=== PATIENT | female | born 2000 | race Two or more races ===

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

== ENCOUNTER 2022-01-21 20:07 | Emergency (ER) | payer BC, SELFPAY ==
[2022-01-21 20:08] VITALS: BP 131/80; PULSE 94; RESP 14; TEMP 36.5; O2SAT 99; BMI 35.9
--- NOTE | 2022-01-21 20:23 | RAD_ITS ---
STUDY: X-RAY - RIGHT HAND REASON FOR EXAM: Female, 21 years old. injury TECHNIQUE: 3 view(s) of the hand. COMPARISON: None. FINDINGS: Normal radiocarpal articulation. Normal distal radioulnar joint. Normal visualized carpal bones. Normal carpal articulations Normal carpometacarpal articulation of the thumb. Normal second through fifth carpometacarpal joints. Acute slightly volarly angulated transverse fracture the midshaft of the fifth metacarpal bone. Normal metacarpophalangeal joint of the thumb. Normal interphalangeal joint of the thumb. Normal proximal and distal phalanges of the thumb. Normal metacarpophalangeal joints of the second through fifth fingers. Normal proximal and distal interphalangeal joints of the second through fifth fingers. Normal phalanges of the second through fifth fingers. The soft tissue structures are unremarkable. RAD/Hand Min 3 Views IMPRESSION: Acute slightly volarly angulated transverse fracture the midshaft of the fifth metacarpal bone. Electronically Signed: Jad Ventura MD at 20:44 EDT ,
--- NOTE | 2022-01-21 20:34 | EDS_ITS ---
HPI History of Present Illness Chief Complaint: Upper Extremity Injury Informant: patient Onset/Context/Timing Onset: Today Narrative Narrative: Patient presents with right hand injury. She states she does not want to go into detail what happened but the start story is that she punched something and has pain to her right hand. She is right-hand dominant. [facility] Medical History Scoliosis Home Medications hydrocodone-acetaminophen 5-325mg 5mg-325mg 1 tab PO Q6H PRN pain 3 days #10 tabs 01/21/22 [Rx Last Taken Unknown] Allergy/AdvReac Type Severity Reaction Status Date / Time No Known Allergies Allergy Verified 01/21/22 20:08 Surgical History History of surgery on wrist Social History Smoking Status: Never smoker ROS ROS ED Constitutional Constitutional ED: Denies chills or fever(s) Eyes Eyes: Denies change in vision or discharge from eye(s) ENT ENT ED: Denies discharge from eye(s), rhinorrhea or sore throat Cardiovascular Cardiovascular: Denies chest pain or palpitations Respiratory/Chest Respiratory/Chest: Denies cough or dyspnea Gastrointestinal Gastrointestinal: Denies abdominal pain, nausea or vomiting Genitourinary Genitourinary ED: Denies dysuria Musculoskeletal Musculoskeletal: Reports extremity pain; Denies back pain Integumentary Denies Abrasions or rash Neurologic Neurologic: Denies headache(s) or weakness Psychiatric Psychiatric: Denies anxiety or depression Allergic/Immunologic Allergic/Immunologic ED: Denies lip swelling or urticaria EXAM Physical Exam Const Vital Signs: 01/21/22 20:08 Temperature 97.7 F L Temperature Source Temporal Pulse Rate 94 Respiratory Rate 14 Blood Pressure 131/80 H Blood Pressure Mean 97 Pulse Ox 99 Oxygen Delivery Method Room Air Positive well nourished and well developed General Appearance ED: well developed HEENT Reports normocephalic and head/scalp atraumatic Eyes PERRL and EOMs intact bilaterally Neck supple Chest Wall inspection of chest normal and palpation of chest normal Resp normal respiratory effort and clear to auscultation bilaterally Cardio regular rate and regular rhythm GI normal to inspection, nondistended, normoactive bowel sounds Palpation: soft Extremity Extremity Narrative: Tenderness palpation with mild edema along the right fourth and fifth metacarpals. Deformity is palpated along the fifth metacarpal. Good range of motion of all digits. Normal cap refill and sensation. No tenderness at the wrist itself. Neuro oriented x3 and no sensory deficits noted Sensorium / Orientation: alert Motor Exam: strength 5/5 throughout Psych mental status grossly normal Skin no rashes or lesions noted MDM MDM MDM Narrative Medical decision making narrative: Patient initially declined anything for pain. Right hand x-rays obtained. Radiography Diagnostic Testing: Radiology Impression Hand X-Ray 01/21/22 20:23 IMPRESSION: Acute slightly volarly angulated transverse fracture the midshaft of the fifth metacarpal bone. Electronically Signed: Jad Ventura MD at 20:44 EDT , Treatment and Re-Evaluation Narrative: Right hand x-ray per my interpretation reveals a midshaft right fifth metacarpal fracture. Radiology interpretation is reviewed. X-rays reviewed with patient. Hand is placed under ulnar gutter splint by myself. Following splint application she has good cap refill distally. Prescription for [place] will be sent to [facility] and she will receive 1 dose here. She request follow-up with [facility]. Procedures Upper Extremity Splints Upper Extremity Splint: Orthoglass and Ulnar gutter Splint Fabrication: Fabricated Location: Right Discharge Plan Triage Chief Complaint: Upper Extremity Injury ED Provider: Edelmira Dennis Dx/Rx/DC Orders Clinical Impression: Closed hand fracture Instructions: ED Closed Hand Fracture (Adult) Prescriptions: New hydrocodone-acetaminophen 5-325 mg tablet 1 tab PO Q6H PRN (Reason: pain) 3 Days Qty: 10 0RF Primary Care Provider: Care Physician,No Primary Referrals: Trev Canchola DO [Med Staff - Active Staff] - 5-7 Days Care Physician,No Primary [Primary Care Provider] - Disposition Disposition: Home, Self Care Discharge Date/Time: 01/21/22 20:51
[2022-01-21] MEDS: Diphth,Pertuss(Acell),Tet Vac 0.5 ML Vial IM (20:49)
[2022-01-21 20:50] VITALS: BP 124/78; PULSE 78; RESP 16; O2SAT 99
[2022-01-21] MEDS: HYDROcodone Bitartrate/Apap 5/325 Tablet PO (21:17)
== END 2022-01-21 21:18 | disposition home or self-care (01) ==
PROVIDERS: Emergency Provider Emergency Medicine; Visit Provider Emergency Medicine
DX: S62.329A Displaced fracture of shaft of unspecified metacarpal bone, initial encounter for closed fracture (principal); W22.09XA Striking against other stationary object, initial encounter; Z23 Encounter for immunization
CPT/HCPCS: 29125; 73130; 90471; 90715; 99282

== ENCOUNTER 2023-03-10 19:40 | Emergency (ER) | payer BC, SELFPAY ==
[2023-03-10 19:42] VITALS: BP 139/97; PULSE 100; RESP 18; TEMP 36.6; O2SAT 96; BMI 29.5
--- NOTE | 2023-03-10 19:45 | RAD_ITS ---
STUDY: X-RAY - LEFT HAND REASON FOR EXAM: Female, 22 years old. INJURY TECHNIQUE: 3 view(s) of the hand. COMPARISON: None. FINDINGS: Normal radiocarpal articulation. Normal distal radioulnar joint. Normal visualized carpal bones. Normal carpal articulations Normal carpometacarpal articulation of the thumb. Normal second through fifth carpometacarpal joints. Normal metacarpi. Normal metacarpophalangeal joint of the thumb. Normal interphalangeal joint of the thumb. Normal proximal and distal phalanges of the thumb. Normal metacarpophalangeal joints of the second through fifth fingers. Normal proximal and distal interphalangeal joints of the second through fifth fingers. Normal phalanges of the second through fifth fingers. The soft tissue structures are unremarkable. RAD/Hand Min 3 Views IMPRESSION: Unremarkable x-ray examination of the hand. Electronically Signed: Silva Stallings MD at 20:44 EDT ,
[2023-03-10] MEDS: Ibuprofen 200 MG Tablet 400 MG PO (20:07)
--- NOTE | 2023-03-10 20:14 | EX.ED.UPPERE ---
HPI History of Present Illness Chief Complaint: Upper Extremity Injury Informant: patient Narrative Narrative: Patient presents with left hand injury. She states she hit her left hand against a table. She has superficial abrasion with bruising along the ulnar side of her hand. She is right-hand dominant. [facility] Medical History Fracture of fifth metacarpal bone of right hand Scoliosis Home Medications NK 03/06/22 [History Last Taken Unknown] Allergy/AdvReac Type Severity Reaction Status Date / Time No Known Allergies Allergy Verified 03/10/23 19:45 Surgical History History of surgery on wrist Social History household members: family Smoking Status: Current every day smoker tobacco type: cigarettes and smokeless tobacco ROS ROS ED Constitutional Constitutional ED: Denies chills or fever(s) ENT ENT ED: Denies sore throat Cardiovascular Cardiovascular: Denies chest pain Respiratory/Chest Respiratory/Chest: Denies cough or dyspnea Gastrointestinal Gastrointestinal: Denies abdominal pain, nausea or vomiting Musculoskeletal Musculoskeletal: Reports extremity pain; Denies back pain Integumentary Reports Abrasions; Denies rash Neurologic Neurologic: Denies headache(s), paresthesias or weakness Psychiatric Psychiatric: Denies anxiety or depression Allergic/Immunologic Allergic/Immunologic ED: Denies lip swelling or urticaria EXAM Physical Exam Const Vital Signs: 03/10/23 19:42 Temperature 97.9 F Temperature Source Temporal Pulse Rate 100 Respiratory Rate 18 Blood Pressure 139/97 H Blood Pressure Mean 111 Pulse Ox 96 Oxygen Delivery Method Room Air Positive well nourished and well developed General Appearance ED: well developed HEENT Reports moist mucous membranes Eyes EOMs intact bilaterally Chest Wall inspection of chest normal and palpation of chest normal Resp normal respiratory effort and clear to auscultation bilaterally Cardio regular rate and regular rhythm GI non-tender and non-distended Extremity Extremity Narrative: Mild edema and early ecchymosis with superficial abrasions along the ulnar side of the left hand. No involvement of the phalanges. Good cap refill and sensation. She can make a strong fist. No tenderness at the elbow or shoulder. Neuro oriented x3, moves all extremities, no focal motor deficits and no sensory deficits noted MDM MDM MDM Narrative Medical decision making narrative: Left hand x-ray obtained per nursing protocol. Per my interpretation there is no evidence of acute fracture. Radiology interpretation is reviewed and agrees. Patient is given ibuprofen. [place] wrap is applied. Patient to continue anti-inflammatories at home. Radiography Diagnostic Testing: Radiology Impression Hand X-Ray 03/10/23 19:45 IMPRESSION: Unremarkable x-ray examination of the hand. Electronically Signed: Silva Stallings MD at 20:44 EDT , Discharge Plan Triage Chief Complaint: Upper Extremity Injury ED Provider: Edelmira Dennis Dx/Rx/DC Orders Clinical Impression: Contusion of hand Instructions: ED Hand Contusion Prescriptions: No Action NK Primary Care Provider: Care Physician,No Primary Referrals: Ana Maria Brandon DO [Med Staff - Active Staff] - As Needed Care Physician,No Primary [Primary Care Provider] - Disposition Disposition: Home, Self Care Discharge Date/Time: 03/10/23 20:27
== END 2023-03-10 20:27 | disposition home or self-care (01) ==
PROVIDERS: Emergency Provider Emergency Medicine; Visit Provider Emergency Medicine
DX: S60.222A Contusion of left hand, initial encounter (principal); F17.210 Nicotine dependence, cigarettes, uncomplicated; W22.03XA Walked into furniture, initial encounter; F17.290 Nicotine dependence, other tobacco product, uncomplicated
CPT/HCPCS: 73130; 99283